=== PATIENT | female | born 1940 | race Caucasian/White ===

== ENCOUNTER 2018-01-19 22:10 | Observation (INO) | payer OTHER ==
[2018-01-19] MEDS ORDERED: NS 1,000 ML IV ONE (22:13)
--- NOTE | 2018-01-19 22:19 | EDPHY ---
H & P Time Seen by Provider: 01/19/18 22:18 HPI/ROS: HPI CHIEF COMPLAINT: Stroke alert activated by EMS. Left-sided facial droop. HISTORY OF PRESENT ILLNESS: This is a 77-year-old female, she presents emergency room after she had a syncopal episode at a local restaurant. Patient states she felt nauseous and got lightheaded she got up to get some fresh air and had a syncopal episode. She vomited on herself. She arrives to the emergency room after stroke activation by EMS. Fire arrived there in EMS thought she had a left facial droop. She arrives to the emergency room she denies any chest pain or headache. She does states she feels lightheaded and nauseous. On exam I did [facility] upon arrival she has no focal neuro deficit. I do not appreciate a left facial droop however EMS of [facility] report that they thought she had one. Patient reports to me that she had 2 glasses of wine this evening at the restaurant typically does not do that. She felt nauseous got lightheaded after drinking knees, she started to get fresh air and had a syncopal episode. She denies any headache, chest pain, shortness of breath. Denies focal numbness or tingling denies focal weakness. She proceed directly to CT as a stroke alert. Past Medical History: Hypertension, history of TIA, history of syncope Past Surgical History: Knee surgery hysterectomy Social History: Denies drugs alcohol tobacco. Retired. Lives with her sister here. Family History: Noncontributory ROS REVIEW OF SYSTEMS: 10 Systems were reviewed and negative with the exception of the elements mentioned in the history of present illness. Exam Constitutional appears well nontoxic, triage nursing summary reviewed, vital signs reviewed, awake/alert. Eyes normal conjunctivae and sclera, EOMI, PERRLA. HENT normal inspection, atraumatic, moist mucus membranes, no epistaxis, neck supple/ no meningismus, no raccoon eyes. Respiratory clear to auscultation bilaterally, normal breath sounds, no respiratory distress, no wheezing. Cardiovascular rate normal, regular rhythm, no murmur, no edema, distal pulses normal. Gastrointestinal soft, non-tender, no rebound, no guarding, normal bowel sounds, no distension, no pulsatile mass. Genitourinary no CVA tenderness. Musculoskeletal no midline vertebral tenderness, full range of motion, no calf swelling, no tenderness of extremities, no meningismus, good pulses, neurovascularly intact. Skin pink, warm, & dry, no rash, skin atraumatic. Neurologic awake, alert and oriented x 3, AAOx3, moves all 4 extremities equally, motor intact, sensory intact, CN II-XII intact, normal cerebellar, normal vision, normal speech. Psychiatric normal mood/affect. Heme/Lymph/Immune no lymphadenopathy. Differential Diagnosis: Includes but is not limited to in a particular order CVA, TIA, ACS, syncope, dehydration, electrolyte disturbance, cardiac arrhythmia Medical Decision Making: Plan for this patient, patient will proceed directly to CT scan as a stroke alert. Obtain EKG, troponin, blood work. Re-evaluation: CT scan head without contrast called to me by Dr. Mullins. Negative for acute bleed. CT angiogram head and neck with IV contrast no evidence of dissection, aneurysm. 225: I spoke with [facility] Dr. Santana, with seeing and evaluating the patient however the patient does not have any stroke evidence on exam. The left facial droop that was seen earlier has resolved. Patient is not a tPA candidate. Patient be admitted for dehydration, syncope. EKG interpretation by me on record in eMeter system. Impression time of EKG 2245, sinus rhythm rate of 54, NJ interval 216 first-degree AV block. LVH present. No signs of acute ischemia no ST elevation no ST depression. T-wave abnormality isolated in lead 3. Dr. Pate accepts. Source: Patient, EMS Constitutional: Initial Vital Signs Temperature (C) 36.2 C 01/19/18 22:10 Heart Rate 55 L 01/19/18 22:10 Respiratory Rate 14 01/19/18 22:10 Blood Pressure 133/58 H 01/19/18 22:10 O2 Sat (%) 96 01/19/18 22:10 O2 Delivery Mode Room Air Allergies/Adverse Reactions: Sulfa (Sulfonamide Antibiotics) Allergy (Verified 01/19/18 22:31) Home Medications: Medication Instructions Recorded Aspirin 325 mg (*) 01/19/18 Fosamax 5mg 01/19/18 HCTZ (*) 01/19/18 Levothyroxine 01/19/18 Lisinopril 01/19/18 Metoprolol Succinate 01/19/18 Medical Decision Making - Diagnostics Imaging Results: Imaging Impressions Chest X-Ray 01/19/18 22:13 Impression: Nothing acute radiographically. Head CTA 01/19/18 22:18 Impression: Normal. Findings and recommendations discussed with Hernando Taylor MD at 10:42 PM hour, 01/19/2018. Final report concurs with initial preliminary interpretation. Neck CTA 01/19/18 22:18 Impression: Nothing focal or acute. Findings and recommendations discussed with Hernando Taylor M.D., at 10:42 p.m. on January 19, 2018. Final report concurs with initial preliminary interpretation. Note: All stenoses are calculated using NASCET Criteria. E:amm - Data Points Laboratory Results: Laboratory Results 01/19/18 22:16 01/19/18 22:16 01/19/18 01/19/18 01/19/18 22:18 22:16 22:16 WBC RBC Hgb POC Hgb 14.3 gm/dL gm/dL (12.6-16.3) Hct POC Hct 42 % % (38-47) MCV MCH MCHC RDW Plt Count MPV Neut % (Auto) Lymph % (Auto) Roane % (Auto) Eos % (Auto) Baso % (Auto) Nucleat RBC Rel Count Absolute Neuts (auto) Absolute Lymphs (auto) Absolute Monos (auto) Absolute Eos (auto) Absolute Basos (auto) Absolute Nucleated RBC Immature Gran % Immature Gran # PT INR POC Sodium 141 mEq/L mEq/L (135-145) Sodium 137 mEq/L mEq/L (135-145) POC Potassium 3.2 mEq/L L mEq/L (3.3-5.0) Potassium 3.4 mEq/L mEq/L (3.3-5.0) POC Chloride 105 mEq/L mEq/L (97-110) Chloride 104 mEq/L mEq/L (97-110) Carbon Dioxide 21 mEq/l L mEq/l (22-31) Anion Gap 12 mEq/L mEq/L (6-14) POC BUN 19 mg/dL mg/dL (7-23) BUN 17 mg/dL mg/dL (7-23) Creatinine 1.1 mg/dL H mg/dL (0.6-1.0) POC Creatinine 1.2 mg/dL H mg/dL (0.6-1.0) Estimated GFR 48 Glucose 156 mg/dL H mg/dL (70-100) POC Glucose 162 mg/dL H mg/dL (70-100) Calcium 9.2 mg/dL mg/dL (8.5-10.4) POC Troponin I 0.00 ng/mL ng/mL (0.00-0.08) 01/19/18 01/19/18 22:16 22:16 WBC 10.22 10^3/uL H 10^3/uL (3.80-9.50) RBC 4.78 10^6/uL 10^6/uL (4.18-5.33) Hgb 13.2 g/dL g/dL (12.6-16.3) POC Hgb Hct 40.3 % % (38.0-47.0) POC Hct MCV 84.3 fL fL (81.5-99.8) MCH 27.6 pg L pg (27.9-34.1) MCHC 32.8 g/dL g/dL (32.4-36.7) RDW 15.1 % % (11.5-15.2) Plt Count 239 10^3/uL 10^3/uL (150-400) MPV 10.4 fL fL (8.7-11.7) Neut % (Auto) 55.6 % % (39.3-74.2) Lymph % (Auto) 30.7 % % (15.0-45.0) Roane % (Auto) 8.7 % % (4.5-13.0) Eos % (Auto) 3.6 % % (0.6-7.6) Baso % (Auto) 1.0 % % (0.3-1.7) Nucleat RBC Rel Count 0.0 % % (0.0-0.2) Absolute Neuts (auto) 5.68 10^3/uL 10^3/uL (1.70-6.50) Absolute Lymphs (auto) 3.14 10^3/uL H 10^3/uL (1.00-3.00) Absolute Monos (auto) 0.89 10^3/uL H 10^3/uL (0.30-0.80) Absolute Eos (auto) 0.37 10^3/uL 10^3/uL (0.03-0.40) Absolute Basos (auto) 0.10 10^3/uL 10^3/uL (0.02-0.10) Absolute Nucleated RBC 0.00 10^3/uL 10^3/uL (0-0.01) Immature Gran % 0.4 % % (0.0-1.1) Immature Gran # 0.04 10^3/uL 10^3/uL (0.00-0.10) PT 13.3 SEC SEC (12.0-15.0) INR 0.99 (0.83-1.16) POC Sodium Sodium POC Potassium Potassium POC Chloride Chloride Carbon Dioxide Anion Gap POC BUN BUN Creatinine POC Creatinine Estimated GFR Glucose POC Glucose Calcium POC Troponin I Medications Given: Discontinued Medications Sodium Chloride (Ns) 1,000 mls @ 0 mls/hr IV ONCE ONE; Wide Open PRN Reason: Protocol Stop: 01/19/18 22:14 Last Admin: 01/19/18 22:30 Dose: 1,000 mls Point of Care Test Results: Chemistry 01/19/18 01/19/18 22:18 22:16 POC Sodium 141 mEq/L mEq/L (135-145) POC Potassium 3.2 mEq/L L mEq/L (3.3-5.0) POC Chloride 105 mEq/L mEq/L (97-110) POC BUN 19 mg/dL mg/dL (7-23) POC Creatinine 1.2 mg/dL H mg/dL (0.6-1.0) POC Glucose 162 mg/dL H mg/dL (70-100) POC Troponin I 0.00 ng/mL ng/mL (0.00-0.08) ISTAT H&H 01/19/18 22:18 POC Hgb 14.3 gm/dL gm/dL (12.6-16.3) POC Hct 42 % % (38-47) Departure - Departure Referrals: Patient,NotPresent [Unknown] - As per Instructions
[2018-01-19 22:25] LABS: PLATELET COUNT 239 10^3/uL (150-400)
[2018-01-19 22:32] LABS: INR 0.99 (0.83-1.16); PROTIME(PATIENT) 13.3 SEC (12.0-15.0)
[2018-01-20] MEDS ORDERED: ONDANSETRON DISINTEGRATING 4 MG TAB PO PRN (00:12)
[2018-01-20] MEDS ORDERED: ACETAMINOPHEN 325 MG TAB PO PRN ×2 (00:12→12:02)
[2018-01-20] MEDS ORDERED: ONDANSETRON 4 MG/2 ML VIAL IVP PRN (00:12)
[2018-01-20] MEDS ORDERED: NS 1,000 ML IV SCH (00:15)
[2018-01-20 05:37] LABS: PLATELET COUNT 229 10^3/uL (150-400)
--- NOTE | 2018-01-20 05:48 | CPEKG ---
Test Reason : OPEN Blood Pressure : / mmHG Vent. Rate : 054 BPM Atrial Rate : 055 BPM P-R Int : 216 ms QRS Dur : 103 ms QT Int : 491 ms P-R-T Axes : 045 -19 012 degrees QTc Int : 466 ms Sinus rhythm Borderline prolonged WA interval Probable left atrial enlargement Left ventricular hypertrophy Confirmed by Hernando Taylor ([id number]) on 01/20/2018 5:47:40 AM Referred By: Confirmed By:Hernando Taylor
--- NOTE | 2018-01-20 07:19 | GHP ---
DATE OF ADMISSION: 01/19/2018 Patient provides history, appears reliable. EMR was reviewed and case discussed with ED provider. CHIEF COMPLAINT: Syncope and facial drooping. HISTORY OF PRESENT ILLNESS: This is a very pleasant 77-year-old female with a past medical history s ignificant for HTN, hypothyroidism, osteoporosis, osteoarthritis, and a history of recurrent syncope since childhood, as well as a TIA prior to 2012, who presents to the emergency department today with complaints of a syncopal episode. Patient was sitting down at time of her event. She was having din ner with her sister and her niece. She reports having had 2 glasses of wine over the course of her d inner. She subsequently began to feel a little nauseous and had a syncopal episode. She had an epis ode of emesis following that. She denies any recent illnesses. No fevers, chills. She does report that just prior to her syncopal episode, she felt a little short of air like she needed to get out to go outside of the restaurant to get some fresh air. She denies any chest pain. No palpitations. She denies any vertigo-type symptoms. She may have fel t a little lightheaded prior to the episode. She did not have any headache or changes in vision. Th e patient did not feel herself that she had any facial drooping. No numbness, tingling. No focal we akness. Her sister, however, had reported to EMS that she noted that patient may have had a little b it of right-sided facial drooping. The patient denies any dysphagia. No drooling. REVIEW OF SYSTEMS: GENERAL: Negative for fevers, chills. SKIN: Patient denies any rashes or sores . ENT: reports some chronic rhinorrhea that is clear due to allergies. EYES: No acute changes in v ision or ocular pain. CV: No chest pain, palpitations. RESPIRATORY: Patient denies a cough but sh e did feel short of air as noted per HPI. GI: Patient did have episode of nausea and vomiting after a syncopal episode. No known aspiration reported. No abdominal pain. No diarrhea. : No dysuri a or hematuria. MUSCULOSKELETAL: Patient reports osteoarthritis and primarily pain in her knees and her neck. NEURO: Patient denies any numbness, tingling. She does chronically have her left 4th fi nger that feels like it is itching but no radiating pain down her arm. No headache. PSYCH: The [place] ent denies anxiety, depression. ALLERGIES: To sulfa. HOME MEDICATIONS: Reviewed with patient, metoprolol succinate, lisinopril, levothyroxine, HCTZ, Fosa max and aspirin full dose 325 mg p.o. daily. PAST MEDICAL HISTORY: Significant for hypertension, hypothyroidism, osteoporosis, osteoarthritis, ch ronic shoulder pain, syncope since she was in childhood, particularly if patient stood still. She ramsey s not really endorsed any syncopal episodes related to positional changes. The patient also notes th at she was hospitalized prior to 2012 at a hospital in [place] for a syncopal episode. She states she was diagnosed with TIA based on MRI results. PAST SURGICAL HISTORY: Significant for total knee arthroscopy on the right, hysterectomy, lumpectomy . FAMILY HISTORY: Paternal grandmother with CVA. Patient's mother with TIAs. 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 She lives with her sister . She does not smoke or utilize any illicit drugs. She has rare alcohol intake and today was a spec ial occasion. CODE STATUS: Full. PHYSICAL EXAMINATION: VITAL SIGNS: Upon arrival to the emergency department, blood pressure 133/58, heart rate is 55, respiratory rate 14, O2 saturation 96% on room air with temperature 36.2. Orthost atic blood pressures obtained showing a supine blood pressure 160/94, heart rate 68, sitting 162/68, heart rate 59, and standing blood pressure 175/72, heart rate 63. GENERAL: No acute distress. Very pleasant adult female is lying quietly in bed. She does appear a little fatigued, but she is pleasa nt and cooperative. HEAD: Normocephalic, atraumatic. EYES: Extraocular muscles are grossly intact . Pupils are equal, round, decreased reactivity to light bilaterally, but symmetric. No scleral ict erus or conjunctival injection. ENT: Mucous membranes appear moist. No oropharyngeal erythema or e xudate. No nasal discharge. NECK: Supple, trachea midline. CV: Bradycardic, regular rhythm. No murmurs, rubs, or gallops appreciated. RESPIRATORY: Lungs clear to auscultation bilaterally. No wh eezes, rales, or rhonchi. ABDOMEN: Positive bowel sounds. Soft, nontender to palpation. No reboun d, guarding, or masses appreciated. : No suprapubic tenderness to palpation. No Farr catheter i n place. EXTREMITIES: Patient does have a 1+ pitting edema in bilateral lower legs. Not a whole of significant swelling in her feet but the patient with 1+ pedal pulses bilaterally and symmetric. NE URO: Grossly nonfocal. Cranial nerves 2 through 12 intact and symmetric bilaterally. Patient is aw alexandre, alert, and oriented x3. Moves all extremities. Strength intact. Patient with just a very mini mal intention tremor on the left when asked to track to the patient's left foot. PSYCH: Thought pro cess content and questions are appropriate. Patient is pleasant and cooperative. Mood of affect garrett ropriate. LABORATORY STUDIES: WBC 10.22, H and H is 13.2 and 40.3, MCV of 84.3, platelet count 239. No bands. PT 13.3, INR 0.99. Sodium 137, potassium 3.4, chloride is 104, CO2 21, anion gap of 12, creatinine is 1.1, BUN 17, basel ine is unknown. GFR is 48. Glucose is 156, calcium 9.2. Troponin point of care is negative. Chest x-ray: Image and report reviewed, within normal limits. CT head without contrast: Normal. C TA head and neck, also normal. No stenosis noted. EKG was reviewed myself showing sinus bradycardia in the 50s with a slightly prolonged DE interval, T -wave inversion in lead 3, nonspecific T-wave changes, AVF and V2, V3. No acute ST elevations, LVH. QTc 466. ASSESSMENT AND PLAN: A very pleasant 77-year-old female with past medical history significant for hy pertension, hypothyroidism, osteoporosis, osteoarthritis, and reported history of recurrent syncopal episodes, as well as one diagnosis of transient ischemic attack who presents to the emergency departm ent today following a syncopal episode with concern for right facial droop. 1. Syncope. The patient's neurologic exam is intact. There are no focal deficits. She was evaluat ed by [facility] who had concern that perhaps the patient still had a little bit of right low er facial drooping. She is not a candidate for tPA due to rapidly resolving symptoms. She was admit sh[place] to neurology floor for close monitoring and stroke workup. The patient does admit she has had a history of recurrent syncopal episodes, maybe 1 per year except in the last 2 to 3 years. She does h ave a bradycardia which could be the cause for her symptoms. She has a 1st degree AV block on teleme try, which has not changed. She does take metoprolol, so will hold her dose this morning and monitor her heart rate. Her orthostatics were negative. She is scheduled for an MRI this morning without c ontrast for further evaluation. The patient reports that when she was admitted in [place] several years ago that she reported that her MRI was noted to be abnormal and so she was diagnosed with a TI A. CT head, CTA head and neck were within normal limits. Orthostatic blood pressures are within nor mal limits also. Will await MRI results and further discuss with Neurology. She had already takes 3 25 mg of aspirin. If the patient continues to have syncopal episodes, she may want to consider an ou tpatient cardiac cath technician. Patient does have some lower extremity edema. She did complain of some dy spnea just prior to her episode. Will plan to also check an echocardiogram. 2. Renal insufficiency. The patient's baseline creatinine is unclear. She will receive some gentle IV fluid hydration overnight and will plan to repeat in the morning. This could be a chronic issue, but patient does not appear to be significantly dehydrated and her BUN is within normal limits. Mike james continue to monitor with BMP. 3. Benign essential hypertension. The patient has had some elevated blood pressures this morning. Plan to resume her HCTZ if renal function is stable and/or does not worsen. I will hold her metoprol ol this morning as noted above due to heart rate. 4. Hypothyroidism. TSH is pending as an add-on. 5. Fluid, electrolyte and nutrition. Intravenous fluid overnight for some gentle hydration, then di scontinue. The patient tolerating p.o. well. Electrolyte monitoring placement if needed. Diet as to lerated. 6. Prophylaxis. SCDs, anticoagulation. The patient should stay an additional day but otherwise mike james encourage mobilization. 7. Code status is full. DISPOSITION: Patient admitted to observation status on the neurology floor for close monitoring and stroke evaluation. /[id number]/MODL
[2018-01-20] MEDS ORDERED: ASPIRIN 325 MG TAB PO SCH ×2 (09:00→21:00)
--- NOTE | 2018-01-20 12:28 | ECHO ---
[email or web address] [address] [address] Main: [phone] Fax: [email or web address] Echocardiogram Name: OSMANY GRAHAM MR#: [id number] Study Date: 01/20/2018 Study Time: 11:09 AM Date of : 1940 Age: 77 year(s) Height: 167.6 cm (66 in.) Weight: 68.04 kg (150 lb.) BSA: 1.77 m2 Gender: Female Examination: Echo with Agitated Saline Indication: Ischemic Stroke Image Quality: Adequate Contrast: Requested by: Mariam Pate BP: 155 mmHg/77 mmHg Heart Rate: Rhythm: Indication: Ischemic Stroke Procedure Staff Teleradiologist: Angelika Esquivel LEIA Reading Physician: Jason Whiting MD Requesting Provider: Conclusions: Normal size left ventricle. No LV hypertrophy. Normal global systolic LV function. EF is 61 %. Grade 1 diastolic dysfunction (abnormal relaxation). Normal RV function. The left atrium is mildly dilated. An agitated saline study was performed and was negative for intracardiac shunting. The right atrium is normal in size. Mild to moderate mitral regurgitation. Moderate tricuspid regurgitation is present. The pulmonary artery pressure is mildly increased. Right ventricular systolic pressure measures 35mmHg. No pericardial effusion. Measurements: Chambers Valvular Assessment AV/MV Valvular Assessment TV/PV Normal Normal Normal Name Value Range Name Value Range Name Value Range Ao Liliana (2D): 2.8 cm (1.4 cm-2.6 AV Vmax: 1.58 m/s (1 m/s-1.7 TR Vmax: 2.74 mm/s ( - ) cm) m/s) TR PGmax: 30 mmHg ( - ) IVSd (2D): 0.8 cm (0.6 cm-1.1 AV maxP mmHg ( - ) syst. PAP: 35 mmHg ( - ) cm) AV meanP mmHg ( - ) PV Vmax: 0.86 m/s (0.6 m/s-0.9 LVDd (2D): 4.6 cm (3.9 cm-5.3 NELSON (VTI): 1.9 cm ( - ) m/s) cm) MV E Vmax: 0.67 m/s ( - ) PV PGmax: 3 mmHg ( - ) LVDs (2D): 3.0 cm (2.1 cm-4 MV A Vmax: 1.06 m/s ( - ) cm) MV E/A: 0.63 ( - ) LVPWd (2D): 0.8 cm ( - ) MV meanP mmHg ( - ) LVOTd 1.8 cm 1.8 cm mm MV PHT: 0.066 s ( - ) LVEF (BP): 61 % (>=55 %) MVA (Vmax): 1.8 m/s ( - ) Patient: OSMANY GRAHAM Study Date: 01/20/2018 Page 1 of 2 11:09 AM RVDd(2D): 3.2 cm (1.9 cm-3.8 MVA (PHT): 3.3 s ( - ) cmmm) Continued Measurements: Chambers Valvular Assessment AV/MV Valvular Assessment TV/PV Name Value Name Value Name Value LADs: 3.7 cm MV DecTime: 257 m/s CVP (est.): 5 mmHg LADs Lon.7 cm MV E' Septal: 0.06 m/s LA Area: 21.0 cm2 MV E/E' Septal: 12.10 LA Volume: 66 ml MV E/E' Lateral: 6.20 LA Volume Index: 37.3 ml/m2 MV VTI: 35.00 cm RA Area: 17.7 cm2 MR PISA radius: 6 mm Additional Vessels Name Value Ao Ascendin.9 cm Inferior Vena Cava: 1.7 cm Findings: Left Ventricle: Normal size left ventricle. No LV hypertrophy. Normal global systolic LV function. EF is 61 %. No regional wall motion abnormality. Grade 1 diastolic dysfunction (abnormal relaxation). Right Ventricle: Normal size right ventricle. Normal RV function. Left Atrium: The left atrium is mildly dilated. An agitated saline study was performed and was negative for intracardiac shunting. Right Atrium: The right atrium is normal in size. Mitral Valve: The mitral valve is normal in appearance and function. No mitral stenosis is present. Mild to moderate mitral regurgitation. Aortic Valve: The aortic valve is tri-leaflet. There is no significant aortic valve regurgitation. No aortic valve stenosis is present. Tricuspid Valve: The tricuspid valve is normal in appearance and function. Moderate tricuspid regurgitation is present. The pulmonary artery pressure is mildly increased. Right ventricular systolic pressure measures 35mmHg. Pulmonic Valve: The pulmonic valve is normal in appearance and function. Trivial pulmonic valve regurgitation. Aorta: The aorta is normal. Normal size aortic root measuring 2.8 cm. Normal size ascending aorta measuring 2.9 cm. IVC: The IVC is normal sized. Pericardium: No pericardial effusion. (No Signature Object) Patient: OSMANY GRAHAM Study Date: 01/20/2018 Page 2 of 2 11:09 AM [id number]
[2018-01-20 13:47] VITALS: BP 190/78
[2018-01-20] MEDS ORDERED: HYDROCHLOROTHIAZIDE 25 MG TAB PO SCH (14:15)
--- NOTE | 2018-01-20 15:20 | ASMTCMCOM ---
CM Note CM Note Notes: Pt medically stable for d/c, no CM d/c needs identified. PT/OT/CASH REGISTER SERVICER rec home. Date Signed: 01/20/2018 03:20 PM Electronically Signed By:JOANN Das
--- NOTE | 2018-01-20 15:20 | ASMTLACE ---
LACE Length of stay for Answers: 2 days current admission Acuity / Level of Answers: No Care: Did the patient have an inpatient admission? Comorbidities - select Answers: Cerebrovascular disease all that apply (CVA, TIA, aneurysms, vasc ular dementia) Opioid dependence / Chronic pain Other Notes: HTN; Hypothyroidism # of Emergency department Answers: 1-2 visits in the last 6 months Score: 9 Date Signed: 01/20/2018 03:19 PM Electronically Signed By:JOANN Das
--- NOTE | 2018-01-20 19:22 | GDS ---
DISCHARGE DIAGNOSES: Likely transient ischemic attack. STUDIES AND PROCEDURES: Chest x-ray, CT of the head, CT angio of the head and neck, MRI of the brain , echocardiogram. PHYSICAL EXAM: GENERAL: The patient is alert. VITAL SIGNS: Afebrile at 36.2, pulse is 58, respirato ry rate is 11, blood pressure is 155/77. She is saturating 96% on room air. I have seen and evaluat ed the patient on the day of discharge. HOSPITAL COURSE: The patient is a 77-year-old female who presented to the emergency room with compla ints of facial droop as well as syncope. She was evaluated and diagnosed with likely TIA. During is hospitalization, she did receive a consultation from [facility]. The patient did not rece thien any intervention at that time. I have discussed the patient's disposition with Dr. Gabriele bustamante o has reviewed her current studies. The patient was previously on 325 mg of aspirin when this incide nt occurred. I recommended to her that she be transitioned to Plavix, however, she is declining at is point, and hoping to follow up with her primary care physician for further recommendations. Her thorough evaluation demonstrates a 1st degree AV block, as well as bradycardia, but no other acut e abnormalities. She has also been recommended to get a Holter monitor in the outpatient setting [facility], which she is agreeable to do. Her symptoms have completely resolved. Syncope. The patient has a longstanding history of syncope as well as bradycardia. Her Lopressor ramsey s been discontinued during this hospitalization and not re-initiated at the time of disposition. Edvin kendall recommended she follow-up with her primary care physician as well as the school fundraising director regarding t his medication again and a Holter monitor evaluation. Hypertension. The patient's blood pressure is mildly elevated. However, she has not received all of her antihypertensive medications this morning. She will follow with her primary care physician and reinitiate her medications in the outpatient setting as previously prescribed, minus her metoprolol X L. Renal insufficiency. Her renal function has returned to baseline prior to disposition. Hypothyroidism. TSH is within normal limits. DISPOSITION: The patient will be discharged home independently. There are no pending studies. Foll owup will be with Dr. Ruth of Neurology as well as the patient's primary care physician, Dr. Deleon. It also is recommended she follow up with a school fundraising director to receive Holter monitor evaluation in the outpatient setting. Again, I have recommended she initiate Plavix and have offered to provide her pr escription for this at the time of disposition. However, she is declining until further follow up wi th her primary care physician. DISCHARGE MEDICATIONS: Please refer to EMR form. I have discontinued the patient's Toprol-XL 25 mg in the setting of syncope and bradycardia until further evaluation. /[id number]/MODL
[2018-01-20] MEDS ORDERED: LISINOPRIL 40 MG TAB PO SCH (21:00)
[2018-01-21] MEDS ORDERED: LEVOTHYROXINE 88 MCG TAB PO SCH (06:00)
[2018-01-21] MEDS ORDERED: HYDROCHLOROTHIAZIDE 25 MG TAB PO SCH (09:00)
[2018-01-21] MEDS ORDERED: METOPROLOL SUCCINATE XR 25 MG TAB PO SCH (09:00)
[2018-01-21] MEDS ORDERED: MULTIVITAMINS 1 EACH TAB PO SCH (09:00)
[2018-01-27] MEDS ORDERED: ALENDRONATE SODIUM 70 MG TAB PO SCH (07:00)
== END 2018-01-20 14:59 | disposition home or self-care (01) ==
LOC: F3N 01-20 00:10
PROVIDERS: ADMIT Family Medicine; ATTEND Internal Medicine
DX: R06.02 Shortness of breath (principal); R29.810 Facial weakness; R00.1 Bradycardia, unspecified; N28.9 Disorder of kidney and ureter, unspecified; E86.9 Volume depletion, unspecified; I10 Essential (primary) hypertension; E03.9 Hypothyroidism, unspecified; M81.0 Age-related osteoporosis without current pathological fracture; M25.519 Pain in unspecified shoulder
CPT/HCPCS: 70450; 70496; 70498; 70551; 71045; 92523; 92610; 93005; 93306; 96360; 97161; 97165; 99285; G0378; G8978; G8979; G8980; G8987; G8988; G8989; 82435-PO; 82565-PO; 82947-PO; 84132-PO; 84295-PO; 84484-PO; 84520-PO; 85014-PO